=== PATIENT | female | born 1950 | race Caucasian/White ===

== ENCOUNTER → 2017-12-08 | Outpatient (CLI) | payer MEDICARE, OTHER | END | disposition home or self-care (01) | LOC: CDC 11:32 | DX: Z01.810 Encounter for preprocedural cardiovascular examination (principal); R94.31 Abnormal electrocardiogram [ECG] [EKG] | CPT/HCPCS: 93000 ==

== ENCOUNTER 2018-03-24 06:00 | Day surgery (SDC) | payer OTHER ==
[~2018-03-24] VITALS: Ht 165.1 cm; Wt 77.1 kg
[~2018-03-24 06:00] MED LIST: ALLEGRA ALLERG180 MG PO; FIBER0.4 GM PO; FLUOXETINE HCL20 MG PO; HYDROCHLOROTHIA25 MG PO; MAGNESIUM400 M1 PO; VITAMIN D31000 UNI2 PO
[2018-03-24 06:55] LABS: BASOPHIL (%) 1.1 % (0-1); BASOPHIL COUNT 0.1 K/uL (0-0.1); EOSINOPHIL (%) 2.8 % (0-5); EOSINOPHIL COUNT 0.2 K/uL (0-0.3); HEMOGLOBIN 16.3 G/DL (11.9-15.5); IMMATURE GRANULOCYTE (%) 0.2 % (0.0-0.7); LYMPHOCYTE (%) 40.8 % (15-42); LYMPHOCYTE COUNT 2.2 K/uL (1.0-2.8); MCH 31.8 PG (29.0-34.0); MCHC 34.7 G/DL (30.0-36.0); MCV 91.8 FL (83-99); MONOCYTE (%) 9.5 % (3-12); MONOCYTE COUNT 0.5 K/uL (0-0.8); NEUTROPHIL (%) 45.6 % (45-76); NEUTROPHIL COUNT 2.4 K/uL (1.8-6.4); PLATELET COUNT 173 K/uL (156-360); RBC DIS.WIDTH-CV 12.9 % (11.8-14.6); RBC DIS.WIDTH-SD 43.5 % (39-53); RED BLOOD COUNT 5.12 M/uL (3.80-5.20); WHITE BLOOD COUNT 5.3 K/uL (4.1-10.2)
[2018-03-24 07:03] LABS: INTER. NORMALIZED RATIO 1.1
[2018-03-24 07:06] LABS: PTT 30.8 SEC (25-37)
[2018-03-24 07:09] VITALS: BP 181/79
[2018-03-24 07:20] LABS: ALBUMIN 4.6 G/DL (3.2-4.8); ALKALINE PHOSPHATASE 78 IU/L (3-129); ALT (GPT) 30 IU/L (3-49); AST (GOT) 36 IU/L (2-34); CHLORIDE 100 MEQ/L (99-109); CREATININE 0.6 MG/DL (0.6-1.3); GFR ESTIMATE (CALCULATED) > 59 mL/min/; GLUCOSE 111 mg/dL (70-99); POTASSIUM 3.6 MEQ/L (3.7-5.4); SODIUM 141 MEQ/L (136-147); TOTAL BILIRUBIN 1.4 MG/DL (0.0-1.0); TOTAL PROTEIN 7.4 G/DL (6.4-8.3); UREA NITROGEN (BUN) 9 mg/dL (9-23)
[2018-03-24 10:15] VITALS: BP 155/69
[2018-03-24 11:06] VITALS: BP 129/82
== END 2018-03-24 11:15 | disposition home or self-care (01) ==
LOC: SDC 06:00
PROVIDERS: Obstetrics & Gynecology
DX: N84.0 Polyp of corpus uteri (principal); I10 Essential (primary) hypertension; K21.9 Gastro-esophageal reflux disease without esophagitis; E83.119 Hemochromatosis, unspecified; Z85.038 Personal history of other malignant neoplasm of large intestine; Z88.2 Allergy status to sulfonamides
CPT/HCPCS: 80053; 85025; 85610; 85730; 88305; J0131; J1100; J2250; J2405; J3010; Q0175